=== PATIENT | male | born 1965 | race Caucasian/White ===

== ENCOUNTER 2023-12-01 06:00 | Outpatient (RCR) | payer OTHER, SELFPAY | END 2023-12-26 23:59 | disposition home or self-care (01) | LOC: MPT 06:00 | PROVIDERS: Visit Provider Family Medicine | DX: M23.51 Chronic instability of knee, right knee (principal) | CPT/HCPCS: 97110; 97161; G0283 ==

== ENCOUNTER 2023-12-27 06:00 | Outpatient (RCR) | payer OTHER, SELFPAY | END 2024-01-20 23:59 | disposition home or self-care (01) | LOC: MPT 06:00 | PROVIDERS: Visit Provider Family Medicine | DX: M23.51 Chronic instability of knee, right knee (principal) | CPT/HCPCS: 97110; G0283 ==

== ENCOUNTER 2024-07-17 11:13 | Outpatient (CLI) | payer OTHER, SELFPAY ==
--- NOTE | 2024-07-17 11:21 | USR_ITS ---
PROCEDURE INFORMATION: Exam: US Abdomen, Limited; Right Upper Quadrant Exam date and time: 07/17/2024 11:30 AM Age: 58 years old Clinical indication: Abnormal findings; Abnormal lab test; Elevated liver enzymes TECHNIQUE: Imaging protocol: Real time ultrasound of the abdomen with image documentation. Limited exam focused on the right upper quadrant. COMPARISON: No relevant prior studies available. FINDINGS: Liver: Liver is mildly enlarged, measuring up to 18.5 cm. Gallbladder: Normal. No gallstones. There is no gallbladder wall thickening. Biliary ducts: Normal. No stones. No dilation. Pancreas: Visualized pancreas is unremarkable. Right kidney: Liver demonstrates diffuse hyperechogenicity relative to the right kidney. US/US abdomen limited [id number] IMPRESSION: 1. Liver demonstrates diffuse hyperechogenicity relative to the right kidney. This is consistent with hepatic steatosis. 2. Liver is mildly enlarged, measuring up to 18.5 cm.
== END 2024-07-17 11:14 | disposition home or self-care (01) ==
LOC: RAD 11:15
PROVIDERS: PCP Family Medicine; Visit Provider Family Medicine
DX: K76.0 Fatty (change of) liver, not elsewhere classified (principal)
CPT/HCPCS: 76705

== ENCOUNTER → 2025-07-10 07:04 | Outpatient (BNVA) | payer OTHER, SELFPAY | PROVIDERS: PCP Family Medicine; Visit Provider Podiatrist Foot & Ankle Surgery | DX: G57.61 Lesion of plantar nerve, right lower limb (principal); Q82.8 Other specified congenital malformations of skin; M25.572 Pain in left ankle and joints of left foot | CPT/HCPCS: 99204 ==

== ENCOUNTER 2025-07-11 10:32 | Outpatient (CLI) | payer OTHER, SELFPAY ==
--- NOTE | 2025-07-11 10:37 | CT_ITS ---
WS: [id number] LDCT LUNG CANCER SCREENING HISTORY: SCREENING TECHNIQUE: Axial imaging performed from the apices to 1 cm below the costophrenic angles. Coronal and sagittal reformats are submitted with axial MIP series. All CT scans at [facility] use at least one of these dose optimization techniques: automated exposure control; mA and/or kV adjustment per patient size (includes targeted exams where dose is matched to clinical indication); or iterative reconstruction. DLP: 83.30 mGy.cm DIvol: Mean CTDIvol: 1.80 (mGy) COMPARISON: None available. Diagnostic quality: Satisfactory Lungs: 4 mm pulm nodule anterior LEFT upper lobe. No mass or pneumonia. No endobronchial lesions. Heart: Normal size heart with no pericardial effusion.. Other findings: Mild atherosclerosis aorta. No pathologic adenopathy. No pericardial or pleural effusions. Partially visualized adrenal glands are negative. Mild thoracic degenerative spondylosis. CT/CT lung screening [id number] IMPRESSION: LUNG-RADS: 2-Benign Appearance or Behavior FOLLOW UP: 12 Month: Continue annual screening with LDCT OTHER FINDINGS (S MODIFIER): None.
== END 2025-07-11 10:33 | disposition home or self-care (01) ==
LOC: RAD 10:34
PROVIDERS: PCP Family Medicine; Visit Provider Nurse Practitioner Family
DX: Z12.2 Encounter for screening for malignant neoplasm of respiratory organs (principal); Z87.891 Personal history of nicotine dependence; I70.0 Atherosclerosis of aorta; M47.814 Spondylosis without myelopathy or radiculopathy, thoracic region
CPT/HCPCS: 71271

== ENCOUNTER → 2025-08-29 10:46 | Outpatient (BNVA) | payer OTHER, SELFPAY | PROVIDERS: PCP Family Medicine; Visit Provider Surgery | DX: K42.9 Umbilical hernia without obstruction or gangrene (principal) | CPT/HCPCS: 99204 ==

== ENCOUNTER → 2025-09-13 07:10 | Outpatient (BNVA) | payer OTHER, SELFPAY | PROVIDERS: PCP Family Medicine; Visit Provider Podiatrist Foot & Ankle Surgery | DX: I73.9 Peripheral vascular disease, unspecified (principal); L60.3 Nail dystrophy; Q82.8 Other specified congenital malformations of skin | CPT/HCPCS: 11721 ==

== ENCOUNTER 2025-09-24 05:46 | Day surgery (SDC) | payer OTHER, SELFPAY ==
[2025-09-24] VITALS (13 sets, daily range): BP systolic 99–117; BP diastolic 57–82; PULSE 44–61; RESP 11–24; TEMP 36.3–36.4; O2SAT 92–100
--- NOTE | 2025-09-24 06:40 | ANES.PREANE2 ---
Pre-Anesthetic Assessment Height/Weight: Height 1.93 m Temp Pulse Resp BP Pulse Ox O2 Del Method 97.5 F L 61 17 117/76 100 Room Air 09/24/25 06:18 09/24/25 06:18 09/24/25 06:18 09/24/25 06:18 09/24/25 06:18 09/24/25 06:19 Operation Date: 09/24/25 07:00 Proposed Procedures p [id number] Laparoscopic poss open umbilical hernia repair with mesh(Not Applicable) - Solomon Maxwell MD Familial anesthetic complications: none Was Beta Effie taken within 24 hours: N/A Was Clonidine taken within 24 hours: N/A Last intake: Intake Last Liquid Date 09/23/25 Last Liquid Time 21:00 Last Solid Date 09/23/25 Last Solid Time 19:00 Social No alcohol and No tobacco Exam alert, oriented x 3, clear to auscultation bilaterally and regular rate & rhythm Airway Mallampati: Class III Dentition: other (none) CV/HEM Hypertension and Peripheral Vascular Disease Metabolic Hyperlipidemia Anesthetic Plan ASA status: 3 Anesthesia: General Risk of > 500 ml blood loss (7ml/kg in children): No Medications/Allergies Home Medications ?Medication ?Instructions ?Recorded ?Confirmed ?Last Taken ?Type L3010 Custom inserts #1 ea 07/10/25 09/13/25 Unknown Rx atorvastatin 10 mg tablet (Lipitor) 10 mg PO DAILY 08/29/25 09/18/25 09/23/25 History cetirizine 5 mg tablet (Zyrtec) 5 mg PO DAILY PRN Allergy Symptoms 08/29/25 09/18/25 09/23/25 History diclofenac sodium 75 mg PO DAILY 08/29/25 09/18/25 09/23/25 History fluticasone propionate 50 1 spray intranasal DAILY 08/29/25 09/18/25 09/23/25 History mcg/actuation nasal spray,suspension (Children's Flonase Allergy Relief) lisinopril 10 mg tablet 10 mg PO DAILY 08/29/25 09/18/25 09/23/25 History latanoprost 0.005 % eye drops 1 drp ophthalmic (eye) DAILY 09/18/25 09/18/25 09/23/25 History montelukast 10 mg tablet 10 mg PO DAILY 09/18/25 09/18/25 09/23/25 History timolol 1 drp ophthalmic (eye) DAILY 09/18/25 09/18/25 09/23/25 History Allergies Allergy/AdvReac Type Severity Reaction Status Date / Time No Known Allergies Allergy Verified 09/18/25 11:07 Current Medications Generic Name Dose Route Start Last Admin Trade Name Freq PRN Reason Stop Dose Admin Sodium Chloride 1,000 mls @ 30 mls/hr 09/24/25 06:00 09/24/25 06:28 Sodium Chloride 0.9% IV 09/25/25 05:59 30 mls/hr .Q24H JAYNA Administration PFSH Anesthesia Social History Smoking and tobacco/nicotine status: former use of tobacco/nicotine
--- NOTE | 2025-09-24 06:42 | W.PM.OPSUD ---
Surgery/Procedure H&P Update DATE OF PROCEDURE: September 24, 2025 DATE H&P PERFORMED: 08/29/25 H&P UPDATE INFORMATION: I have reviewed H&P completed within last 30 days, I have examined patient prior to procedure, No changes to prior documentation, H&P is in [facility] EMR on date indicated and Risks and benefits of the procedure reviewed PLANNED PROCEDURE: Operation Date: 09/24/25 07:00 Proposed Procedures p [id number] Laparoscopic poss open umbilical hernia repair with mesh(Not Applicable) - Solomon Maxwell MD
[2025-09-24] MEDS: ceFAZolin 2,000 mg SDV 2000 MG IVP (07:00)
[2025-09-24] MEDS: BUPivacaine liposome 13.3 mg/mL SDV 20 mL 266 MG INFILTRATI (08:01)
[2025-09-24] MEDS: BUPivacaine 0.25% INJ 30 mL 20 ML INJECTION (08:02)
--- NOTE | 2025-09-24 08:34 | PM.OP ---
Operative Report Date of procedure: September 24, 2025 Pre-op diagnosis: Incarcerated umbilical hernia Post-op diagnosis: Same Post-op findings: There was an incarcerated umbilical hernia containing fat and measuring 2 x 2 cm, laparoscopic tap block Procedure done: Laparoscopic repair of incarcerated umbilical hernia Implants: 11 cm Bard Ventralight mesh Specimens removed/disposition: Hernia sac and contents Surgeon: Solomon Maxwell MD Associate Director Career Services: [employer] Estimated blood loss: 5 Complications: none apparent Brief History: This a 60-year-old male with umbilical hernia who presented for repair. After discussion of all risks and benefits as documented in my preop note we decided to proceed Procedure: Patient was brought into the OR, he was placed in a supine position. General anesthesia was given. The abdomen was prepped and draped in the usual sterile fashion. The abdomen was accessed in the left upper quadrant with a 5 mm Optiview trocar under direct visualization. Pneumoperitoneum was obtained and no evidence of visceral injury during entry was noted. A 12 mm trocar was placed in the left flank and another 5 mm trocar was placed in the left lower quadrant. I then placed my attention to the anterior abdominal wall. With internal traction external compression I was able to reduce the contents of the umbilical hernia, it contained preperitoneal fat only. With the help of a LigaSure I proceeded to clear the edges of the hernia and resected the hernia sac and contents which were then retrieved via the 12 mm trocar and sent to pathology. I then proceeded to close the defect using a 0 PDS suture with laparoscopic suturing. Once the defect was closed and a good landing area for the mesh was verified I then proceeded to place an 11 cm mesh into the abdomen, through the bellybutton I retrieved the positioning suture and then I proceeded to tack the mesh to the anterior abdominal wall using secure strap. The exoskeleton of the mesh was then retrieved through the 12 mm trocar. The mesh was noted to be in good position against the abdominal wall. No evidence of bleeding noted. I then proceeded to do a laparoscopic guided tap block injecting liposomal bupivacaine in the transverse abdominal plane in the right and left side of the abdomen. The 12 mm trocar was removed and the trocar site was closed under direct visualization with a 0 Vicryl using Gage-Padmini suture passer. The 5 mm left lung trocar was removed. The left upper quadrant trocar was used to evacuate the pneumoperitoneum and subsequently removed. The wounds were closed in layers after hemostasis was achieved. We used 3-0 Vicryl for subcutaneous tissue 4-0 Monocryl for the skin and Dermabond was applied. At the end of the procedure all counts were correct. The patient tolerated well the procedure was transferred to PACU in stable condition
[2025-09-24] MEDS: fentaNYL 50 mcg/mL INJ 2mL IVP (09:10)
[2025-09-24] MEDS: ondansetron 2 mg/ML SDV 2 mL 4 MG IVP (09:46)
[2025-09-24] MEDS: oxyCODONE 5 mg IR Tab/Cap PO (10:16)
--- NOTE | 2025-09-24 10:50 | ANE.PACU2 ---
Inpatient post-anesthesia follow up: Airway intact: Yes Vital signs: Temperature 97.5 F Pulse Rate 54 Respiratory Rate 17 Blood Pressure 106/75 Pulse Oximetry 95 Oxygen Delivery Me thod Room Air Oxygen Flow Rate Fraction of Inspir ed Oxygen Hydration adequate: Yes Nausea and vomiting: No Pain level: 1 Mental status: Baseline
== END 2025-09-24 10:53 | disposition home or self-care (01) ==
PROVIDERS: PCP Nurse Practitioner Family; Visit Provider Surgery
PROC: 0WQF4ZZ Repair Abdominal Wall, Percutaneous Endoscopic Approach (ICD-10-PCS; CPT 49592; principal; 2025-09-24 07:00)
DX: K42.9 Umbilical hernia without obstruction or gangrene (principal); I10 Essential (primary) hypertension; I73.9 Peripheral vascular disease, unspecified; E78.5 Hyperlipidemia, unspecified; Z87.891 Personal history of nicotine dependence
CPT/HCPCS: 49592; 88302; C1781; J0131; J0666; J0690; J1100; J1171; J2405; J2704; J3010; J3490; J7030; J9999